=== PATIENT | male | born 1990 | race Caucasian/White ===

== ENCOUNTER 2020-12-17 11:25 | Emergency (ER) | payer OTHER ==
[~2020-12-17] VITALS: Ht 185.4 cm; Wt 86.2 kg
[2020-12-17] MEDS ORDERED: DOXYCYCLINE HY100 MG PO (12:24)
== END 2020-12-17 12:52 | disposition home or self-care (01) ==
LOC: ED 11:25
DX: S61.012A Laceration without foreign body of left thumb without damage to nail, initial encounter (principal); W26.0XXA Contact with knife, initial encounter; F17.200 Nicotine dependence, unspecified, uncomplicated; Z88.1 Allergy status to other antibiotic agents
CPT/HCPCS: 12001; 73140; 99283-25

== ENCOUNTER 2021-11-22 12:45 | Emergency (ER) | payer OTHER ==
[~2021-11-22] VITALS: Ht 185.4 cm; Wt 86.2 kg
[~2021-11-22 12:45] MED LIST: DOXYCYCLINE HY100 MG PO
[2021-11-22] MEDS ORDERED: AMOXICILLIN500 MG PO (14:31)
== END 2021-11-22 18:08 | disposition home or self-care (01) ==
LOC: ED 12:45
DX: R51.9 Headache, unspecified (principal); F17.200 Nicotine dependence, unspecified, uncomplicated; Z88.1 Allergy status to other antibiotic agents; Z79.899 Other long term (current) drug therapy
CPT/HCPCS: 99283

== ENCOUNTER 2025-07-04 06:10 | Emergency (ER) | payer OTHER | END 2025-07-04 08:45 | disposition home or self-care (01) | LOC: ED 06:10 | DX: K08.89 Other specified disorders of teeth and supporting structures (principal); Z88.8 Allergy status to other drugs, medicaments and biological substances; F17.200 Nicotine dependence, unspecified, uncomplicated ==